=== PATIENT | male | born 1970 | race Caucasian/White ===

== ENCOUNTER 2016-08-05 19:13 | Emergency (ER) | payer BC ==
[2016-03-19 03:48] VITALS: BMI 31.6
[~2016-08-05 19:13] MED LIST: DILAUDID2 MG PO; DIOVAN HCT 160/1 TA1 PO; NORVASC5 MG PO; XANAX1 MG PO
== END 2016-08-05 22:58 | disposition home or self-care (01) ==
LOC: D.ER 19:13
DX: M25.531 Pain in right wrist (principal); M54.5 Low back pain; B19.20 Unspecified viral hepatitis C without hepatic coma; K74.60 Unspecified cirrhosis of liver; G62.9 Polyneuropathy, unspecified; F17.200 Nicotine dependence, unspecified, uncomplicated

== ENCOUNTER 2016-11-23 23:05 | Emergency (ER) | payer MEDICAID ==
[2016-03-19 03:48] VITALS: BMI 31.6
[2016-11-23 23:39] LABS: APPEARANCE CLEAR (CLEAR); BILIRUBIN NEGATIVE (NEGATIVE); COLOR YELLOW (YELLOW); GLUCOSE NEGATIVE (NEGATIVE); KETONE NEGATIVE (NEGATIVE); LEUKOCYTE ESTERASE NEGATIVE (NEGATIVE); NITRITE NEGATIVE (NEGATIVE); PROTEIN NEGATIVE (NEGATIVE); UROBILINOGEN NORMAL (NORMAL)
[2016-11-23 23:42] LABS: BASOPHILS 0.5 % (0-2); EOSINOPHILS 2.5 % (0-7); HEMATOCRIT 40.6 % (42.0-54.0); HEMOGLOBIN 13.7 g/dL (13.5-17.5); IMMATURE GRANULOCYTES 0.2 % (0-5); LYMPHOCYTES 31.2 % (15-50); MCH 31.6 pg (26.0-34.0); MCHC 33.7 g/dL (31.0-37.0); MCV 93.5 fL (80.0-100.0); MEAN PLATELET VOLUME 10.8 fL (7.4-10.4); MONOCYTES 6.3 % (2-11); NEUTROPHILS 59.3 % (40-80); RBC 4.34 10x6/uL (4.20-6.10); RDW 13.3 % (11.5-14.5); WBC 8.7 10x3/uL (4.8-10.8)
[2016-11-23 23:46] LABS: PLATELET COUNT 122 10x3/uL (130-400)
[2016-11-23 23:50] LABS: BACTERIA FEW /hpf (NONE SEEN); EPITHELIAL CELLS OCC /hpf (0-5); GRANULAR CAST RARE /lpf (NONE SEEN); HYALINE CAST RARE /lpf (NONE SEEN); MUCUS >1+ /lpf (NONE SEEN); WAXY CAST OCC /lpf (NONE SEEN); WHITE CELLS - URINE 0-5 /hpf (0-5)
[2016-11-23 23:51] LABS: AMORPHOUS SEDIMENT <1+ /lpf (NONE SEEN)
[2016-11-23 23:54] LABS: ALBUMIN 3.5 g/dL (3.4-5.0); ANION GAP 11.9 mmol/L (8-16); BILIRUBIN - TOTAL 0.13 mg/dL (0.2-1.3); CALCIUM 9.3 mg/dL (8.5-10.1); CARBON DIOXIDE 28.7 mmol/L (21.0-32.0); CREATININE - SERUM 1.3 mg/dL (0.6-1.3); POTASSIUM - SERUM 3.6 mmol/L (3.5-5.1); PROTEIN - SERUM 8.3 g/dL (6.4-8.2)
== END 2016-11-24 01:34 | disposition home or self-care (01) ==
LOC: D.ER 23:05
PROVIDERS: Emergency Medicine
DX: B19.20 Unspecified viral hepatitis C without hepatic coma (principal); K76.9 Liver disease, unspecified; R10.9 Unspecified abdominal pain; F17.200 Nicotine dependence, unspecified, uncomplicated

== ENCOUNTER → 2016-12-30 06:33 | Outpatient (CLI) | payer MEDICAID ==
[2016-03-19 03:48] VITALS: BMI 31.6
== END | disposition home or self-care (01) ==
LOC: D.RAD 06:33 → D.CT 10:00
DX: M54.5 Low back pain (principal)

== ENCOUNTER 2017-01-20 05:15 | Inpatient (IN) | payer MEDICAID ==
[2017-01-19 15:35] LABS: APPEARANCE CLEAR (CLEAR); BILIRUBIN NEGATIVE (NEGATIVE); COLOR YELLOW (YELLOW); GLUCOSE NEGATIVE (NEGATIVE); KETONE NEGATIVE (NEGATIVE); LEUKOCYTE ESTERASE NEGATIVE (NEGATIVE); NITRITE NEGATIVE (NEGATIVE); PROTEIN NEGATIVE (NEGATIVE); SPECIFIC GRAVITY 1.015 (1.005-1.020); UROBILINOGEN NORMAL (NORMAL)
[2017-01-19 15:37] LABS: BASOPHILS 0.6 % (0-2); EOSINOPHILS 2.7 % (0-7); HEMATOCRIT 37.4 % (42.0-54.0); HEMOGLOBIN 12.7 g/dL (13.5-17.5); IMMATURE GRANULOCYTES 0.3 % (0-5); MCH 31.5 pg (26.0-34.0); MCV 92.8 fL (80.0-100.0); MEAN PLATELET VOLUME 10.5 fL (7.4-10.4); MONOCYTES 7.2 % (2-11); NEUTROPHILS 56.2 % (40-80); PLATELET COUNT 142 10x3/uL (130-400); RBC 4.03 10x6/uL (4.20-6.10); RDW 13.5 % (11.5-14.5); WBC 7.9 10x3/uL (4.8-10.8)
[2017-01-19 15:43] LABS: APTT 29.3 SECONDS (22.8-39.4); INR 1.11 (0.85-1.17); PROTIME 14.2 SECONDS (11.6-15.0)
[2017-01-19 15:51] LABS: ALBUMIN 3.6 g/dL (3.4-5.0); ALKALINE PHOSPHATASE 67 U/L (46-116); ALT (SGPT) 47 U/L (10-68); BILIRUBIN - TOTAL 0.37 mg/dL (0.2-1.3); CALC OSMOLALITY 287 mosm/kg (275-300); CALCIUM 9.3 mg/dL (8.5-10.1); CARBON DIOXIDE 30.1 mmol/L (21.0-32.0); CHLORIDE - SERUM 105 mmol/L (98-107); POTASSIUM - SERUM 4.3 mmol/L (3.5-5.1); PROTEIN - SERUM 8.4 g/dL (6.4-8.2); SODIUM 143 mmol/L (136-145); UREA NITROGEN 20 mg/dL (7-18); eGFR NON AFRICAN AMERICAN 86 mL/min (90-120)
[2017-01-19 15:59] LABS: GLUCOSE 92 mg/dL (74-106)
[2017-01-20] VITALS (10 sets, daily range): BP systolic 108–134; BP diastolic 64–94; Ht 162.6 cm; Wt 79.5 kg
[~2017-01-20] VITALS: Ht 162.6 cm; Wt 79.5 kg
--- NOTE | ~2017-01-20 | OP ---
PATIENT NAME: ANNAMARIE CAMERON MEDICAL RECORD: [id number] :72 LOCATION:[id number] ADMISSION DATE:01/20/17 SURGEON: SRINATH HE MD OPERATION DATE: 01/20/17 PREOPERATIVE DIAGNOSES: 1. Right L3-L4 radiculopathy. 2. Adjacent segment disease. POSTOPERATIVE DIAGNOSES: 1. Right L3-L4 radiculopathy. 2. Adjacent segment disease. PROCEDURE PERFORMED: 1. Anterolateral retroperitoneal approach to the lumbar spine for L3-4 discectomy and decompression. 2. Application of intravertebral biomechanical device from lateral retroperitoneal approach. 3. Lateral retroperitoneal approach for interbody arthrodesis with endplate preparation with rasps and curettes. IMPLANTS: NuVasive 10 millimeter x 18 millimeter x 50 millimeter 10 degree lordotic Coroent XLIF interbody device packed with Osteocel allograft; this was a tab implant with 5.5 x 50 millimeter screw placed in the superior vertebral body. COMPLICATIONS: None apparent. SPECIMENS: None. ESTIMATED BLOOD LOSS: 50 milliliters. HISTORY: Annamarie Cameron is a pleasant 46-year-old male who presented to clinic with progressive severe right lower extremity pain in his proximal right leg. He had history of a L4-5 posterior fusion and fixation done approximately 17 years ago. Myelogram preoperatively was consistent with right L3-4 foraminal stenosis and a paracentral disc bulge at L3-4. I h ad an extensive discussion with Mr. Cameron regarding imaging findings, complications, risks, benefits, and options of operative intervention in the form of a lateral decompression and fixation versus continued conservative therapy. He opted to go for the operative intervention and the risks and benefits were discussed with him in detail. PROCEDURE IN DETAIL: Mr. Cameron with identified by the anesthesia team, transported to the operative theater with general endotracheal anesthesia commenced and all appropriate lines and tubes were placed. He was turned in the right lateral decubitus position with his left side up. Axillary roll was placed. Pressure points were padded. His left leg was flexed to allow for psoas relaxation. He was secured to the bed in a anatomically favorable fashion for x-ray. Using AP and lateral x-ray, a lateral incision was marked overlying the L3-4 disc space. After a timeout was performed and agreed to by those present. The patient did receive 1 gram of Ancef and 10 milligrams of IV dexamethasone prior to the start of the procedure. The incision was infiltrated with 1% Lidocaine with epinephrine and a 10 blade was used to make initial skin incision. A small amount of Bovie electrocautery was used to deepen the incision to the level of the subcutaneous fat. Blunt dissection was used down to the external abdominal musculature. This was opened with Metzenbaum scissors and care was taken to retract the retroperitoneal OPERATIVE REPORT [id number] CAMERON,DAVY ANKIT structures anteriorly and bluntly with finger. Blunt dissection continued down for palpation of the transverse process. Just anterior to the transverse process we located the psoas fascia. The initial dilator was introduced and with the direction of EMG nerve monitoring an approach to L3-4 disc space was ultimately achieved with appropriate position on AP and lateral fluoroscopy. A K-wire was tamped into place and ultimately the MaXcess retractor was placed and prior to placement of the chi the [place] 4 type dissector was used and appeared the nerve was in the region of the posterior blade. Direct probe stimulation suggested strongly that this was indeed a nerve. As such, the retractor was taken out and new approach in slightly anterior fashion was undertaken and under direct of EMG nerve stimulation. It was appropriately positioned on x-ray and the K-wire was ultimately placed. The retractor was reintroduced and the drill simulation was much more favorable. It was still producing a nerve root response at pretty low EMG stimulation posteriorly so it was elected to not place the chi anchor. The Halo retractor was placed to delineate the anterior border. The residual psoas muscle around the disc space was dissected free with the dissector. The 10 blade was used to make a score a cut in the disc space and pituitary rongeurs were used to perform initial discectomy. A combination of Johnson elevators, endplate rasps, and box cutters and curettes were used to perform discectomy and endplate preparation. Ultimately a 10 millimeter trial was placed and found to be appropriately positioned on AP and lateral fluoroscopy. As such, the 10 x 18 x 50 millimeter 10 degree cage with the inferior tabbed screw hole portion removed was packed with Osteocel bone graft substance and inserted to the appropriate position under x-ray. Please note that during the insertion and removal of the instruments during the discectomy and the trial, care was taken to bluntly reflect with the yellow retractor and my finger the retroperitoneal fat space. The bony awl was then used to develop a screw track for the superior tab and a 5.5 x 50 millimeter screw was then placed and deepened until the locking mechanism was engaged. The screw was in appropriate position by x-ray. Copious amount of irrigation was used down the operative tract totally approximately one liter of antibiotic infused irrigation total. A small amount of vancomycin powder was sprinkled down through the psoas track. The retractor blades were closed down taking care not to pinch any tissue surrounding the blades then removed and final x-rays were taken showing the implants in the appropriate position. A small amount of Surgiflo hemostatic matrix control a very small amount of hemorrhage in the psoas muscle. There significant hemorrhage prior to closure. The transversalis fascia was reapproximated with interrupted 3-0 Vicryl sutures. The subdermal region was reapproximated with inverted interrupted 3-0 sutures and the skin was closed with running 4-0 subcuticular Monocryl. The area was cleaned and dressed with a sterile wet and dry dressing and a Dermabond skin glue and Prineo dressing was placed. The patient was returned to the anesthesia team for reversal and extubation. The patient tolerated the procedure well, without any apparent complications. I updated his family immediately postoperative regarding the course of the surgery and their questions were answered. All sponge and needle counts were correct times two at the end of the case. OPERATIVE REPORT [id number] ANNAMARIE CAMERON JUSTIN T MD CC: [id number] DICTATION DATE: 01/20/17 1200 NUCLEAR SPECTROSCOPIST: FRACISCO 01/21/17 0914 [facility] [place] [id number] [place] [id number]
[~2017-01-20 05:15] MED LIST changes: +ALDACTONE50 MG PO; +DIOVAN HCT 320/1 TA2 PO; +ENULOSE10 G/15 ML PO; +GABAPENTIN100 MG PO; +LEXAPRO20 MG PO; +NEURONTIN 300300 MG PO; +OMEPRAZOLE20 M1 PO; +OXYCODONE HCL10 MG PO; +PREDNISONE10 MG PO; +ROBAXIN-750750 MG PO; +XANAX0.5 MG PO; +XIFAXAN550 MG PO
--- NOTE | 2017-01-20 11:38 | NUR ---
PT AOX4 RESP EVEN AND NONLABORED PT RESPONDS WITH APPROPRIATE ANSWERS AT THIS TIME V/S WNL PT IN ROOM AT BEDSIDE. SRX2 HOB30 DEGREES BED AT LOWEST SETTING WILL CONTINUE TO MONITOR
--- NOTE | 2017-01-21 03:59 | NUR ---
PATIENT RESTING IN BED AND DENIES NEEDS AT THIS TIME. ADMINSITERED MEDS PER ORDERS. BED IN LOWEST POSITION AND CALL LIGHT WITHIN REACH. ENCOURAGED THE PATIENT TO CALL IF HE HAS NEEDS.
[2017-01-21] MEDS ORDERED: ROBAXIN-750750 MG PO (06:56)
--- NOTE | 2017-01-21 07:10 | NUR ---
PATIENT RECEIVED SITTING UP ON SIDE OF BED ALERT. NO SIGNS OF DISTRESS NOTED. SIDE RAILS UP X2. DENIES NEEDS. BED IN LOW POSITION. CALL LIGHT IN REACH.
--- NOTE | 2017-01-21 09:05 | NUR ---
IV TO RIGHT HAND D/C WITH CATH TIP INTACT. SITE COVERED WITH GAUZE AND BANDAID.
--- NOTE | 2017-01-21 10:20 | NUR ---
D/C TEACHING PROVIDED TO PATIENT AND FAMILY. STATES UNDERSTANDING. QUESTIONS ANSWERED. D/C HOME WITH FAMILY. TRANSFERRE DOWNSTAIRS VIA WHEELCHAIR WITH VOLUNTEER.
== END 2017-01-21 10:21 | disposition home or self-care (01) | DRG 460 ==
LOC: D.MS 05:15 → D.SDCHOLD 05:15 → D.MS 10:41
PROVIDERS: ADMIT Neurological Surgery
PROC: 0SB20ZZ Excision of Lumbar Vertebral Disc, Open Approach (ICD-10-PCS; 2017-01-20)
PROC: 0SG00A0 Fusion of Lumbar Vertebral Joint with Interbody Fusion Device, Anterior Approach, Anterior Column, Open Approach (ICD-10-PCS; principal; 2017-01-20 07:30)
DX: M54.16 Radiculopathy, lumbar region (principal)

== ENCOUNTER 2017-01-28 22:38 | Emergency (ER) | payer MEDICAID ==
[2017-01-20 11:15] VITALS: BMI 30.1
== END 2017-01-29 01:20 | disposition home or self-care (01) ==
LOC: D.ER 22:38
DX: G89.18 Other acute postprocedural pain (principal); F17.200 Nicotine dependence, unspecified, uncomplicated

== ENCOUNTER → 2017-02-26 08:09 | Outpatient (CLI) | payer MEDICAID ==
[2017-01-20 11:15] VITALS: BMI 30.1
== END | disposition home or self-care (01) ==
LOC: D.RAD 08:00
DX: Z48.811 Encounter for surgical aftercare following surgery on the nervous system (principal)

== ENCOUNTER 2017-03-27 20:53 | Emergency (ER) | payer MEDICAID | END 2017-03-27 23:35 | disposition home or self-care (01) | LOC: D.ER 20:53 | DX: R10.13 Epigastric pain (principal); K76.9 Liver disease, unspecified; F17.200 Nicotine dependence, unspecified, uncomplicated ==

== ENCOUNTER 2017-04-13 11:29 | Emergency (ER) | payer MEDICAID ==
[2017-01-20 11:15] VITALS: BMI 30.1
[~2017-04-13 11:29] MED LIST changes: -NEURONTIN 300300 MG PO; +NEURONTIN600 MG PO
[2017-04-13 12:20] LABS: BASOPHILS 0.3 % (0-2); EOSINOPHILS 4.3 % (0-7); HEMATOCRIT 41.6 % (42.0-54.0); HEMOGLOBIN 14.3 g/dL (13.5-17.5); IMMATURE GRANULOCYTES 0.1 % (0-5); LYMPHOCYTES 27.5 % (15-50); MCH 30.9 pg (26.0-34.0); MCHC 34.4 g/dL (31.0-37.0); MCV 89.8 fL (80.0-100.0); MEAN PLATELET VOLUME 10.2 fL (7.4-10.4); MONOCYTES 9.3 % (2-11); NEUTROPHILS 58.5 % (40-80); PLATELET COUNT 157 10x3/uL (130-400); RBC 4.63 10x6/uL (4.20-6.10); RDW 13.5 % (11.5-14.5); WBC 10.6 10x3/uL (4.8-10.8)
[2017-04-13 12:27] LABS: APPEARANCE HAZY (CLEAR); BILIRUBIN NEGATIVE (NEGATIVE); COLOR DK YELLOW (YELLOW); GLUCOSE NEGATIVE (NEGATIVE); KETONE NEGATIVE (NEGATIVE); NITRITE NEGATIVE (NEGATIVE); PROTEIN NEGATIVE (NEGATIVE); SPECIFIC GRAVITY 1.015 (1.005-1.020); UROBILINOGEN NORMAL (NORMAL)
[2017-04-13 12:28] LABS: APTT 29.9 SECONDS (22.8-39.4); INR 1.07 (0.85-1.17); PROTIME 13.8 SECONDS (11.6-15.0)
[2017-04-13 12:33] LABS: ALBUMIN 3.5 g/dL (3.4-5.0); ALKALINE PHOSPHATASE 102 U/L (46-116); ALT (SGPT) 32 U/L (10-68); AMYLASE - SERUM 74 U/L (25-115); BILIRUBIN - TOTAL 0.43 mg/dL (0.2-1.3); CALC OSMOLALITY 269 mosm/kg (275-300); CALCIUM 9.3 mg/dL (8.5-10.1); CARBON DIOXIDE 29.6 mmol/L (21.0-32.0); CHLORIDE - SERUM 100 mmol/L (98-107); CREATININE - SERUM 0.9 mg/dL (0.6-1.3); GLUCOSE 107 mg/dL (74-106); LIPASE 159 U/L (73-393); POTASSIUM - SERUM 3.2 mmol/L (3.5-5.1); PROTEIN - SERUM 8.4 g/dL (6.4-8.2); SODIUM 135 mmol/L (136-145); UREA NITROGEN 12 mg/dL (7-18); eGFR NON AFRICAN AMERICAN > 90 mL/min (90-120)
[2017-04-13 12:35] LABS: UDS - AMPHET POSITIVE QUAL (NEGATIVE); UDS - BARB NEGATIVE QUAL (NEGATIVE); UDS - BENZO POSITIVE QUAL (NEGATIVE); UDS - COCAINE NEGATIVE QUAL (NEGATIVE); UDS - OPIATE POSITIVE QUAL (NEGATIVE); UDS - PCP NEGATIVE QUAL (NEGATIVE); UDS - THC NEGATIVE QUAL (NEGATIVE)
[2017-06-15] MEDS ORDERED: PERCOCET 10/3251 TA1 PO (09:17)
[2017-06-15] MEDS ORDERED: MOVANTIK25 MG PO (09:18)
== END 2017-04-13 16:15 | disposition home or self-care (01) ==
LOC: D.ER 11:29
PROVIDERS: Family Medicine
DX: R10.9 Unspecified abdominal pain (principal); K59.00 Constipation, unspecified; F15.10 Other stimulant abuse, uncomplicated; F17.200 Nicotine dependence, unspecified, uncomplicated

== ENCOUNTER 2017-06-17 05:29 | Day surgery (SDC) | payer MEDICAID ==
[2017-06-15 10:31] LABS: HEMOGLOBIN 13.6 g/dL (13.5-17.5); MCH 31.1 pg (26.0-34.0); MCV 91.3 fL (80.0-100.0); RBC 4.38 10x6/uL (4.20-6.10); RDW 13.9 % (11.5-14.5); WBC 8.5 10x3/uL (4.8-10.8)
[2017-06-15 10:53] LABS: ALBUMIN 3.5 g/dL (3.4-5.0); ALKALINE PHOSPHATASE 78 U/L (46-116); ALT (SGPT) 38 U/L (10-68); APTT 32.5 SECONDS (22.8-39.4); BILIRUBIN - TOTAL 0.23 mg/dL (0.2-1.3); CALC OSMOLALITY 271 mosm/kg (275-300); CALCIUM 9.1 mg/dL (8.5-10.1); CARBON DIOXIDE 29.2 mmol/L (21.0-32.0); CHLORIDE - SERUM 101 mmol/L (98-107); CREATININE - SERUM 1.1 mg/dL (0.6-1.3); GLUCOSE 98 mg/dL (74-106); INR 1.1 (0.85-1.17); PROTEIN - SERUM 8.2 g/dL (6.4-8.2); PROTIME 13.8 SECONDS (11.6-15.0); SODIUM 136 mmol/L (136-145); UREA NITROGEN 13 mg/dL (7-18); eGFR NON AFRICAN AMERICAN 76 mL/min (90-120)
[~2017-06-17] VITALS: Ht 162.6 cm; Wt 79.4 kg
[~2017-06-17 05:29] MED LIST changes: +MOVANTIK25 MG PO; +PERCOCET 10/3251 TA1 PO
[2017-06-17 08:24] VITALS: BP 133/85; Ht 162.6 cm; Wt 79.4 kg
--- NOTE | 2017-06-17 11:31 | NUR ---
1115 IV DC WITH CATHER TIP INTACT
--- NOTE | 2017-06-17 14:09 | OP ---
PATIENT NAME: ANNAMARIE CAMERON MEDICAL RECORD: [id number] :72 LOCATION:[facility] ADMISSION DATE: SURGEON: DAMIAN SANDOVAL MD DATE OF OPERATION: 06/17/2017 PREOPERATIVE DIAGNOSIS: Ganglion cyst of the right wrist dorsum -- complex. POSTOPERATIVE DIAGNOSIS: Ganglion cyst of the right wrist dorsum -- complex. PROCEDURE: Removal of ganglion cyst of the right wrist. SURGEON: Damian Sandoval MD ANESTHESIA: General. INTRAOPERATIVE COMPLICATIONS: None. SUMMARY OF PATHOLOGIC FINDINGS: The patient had a multilobulated ganglion cyst emanating from the dorsal capsule of the right wrist that required excision with capsular repair. OPERATIVE SUMMARY IN DETAIL: After obtaining the appropriate preoperative orthopedic surgery consent as well as anesthetic consultation, evaluation, and clearance, the patient was brought to the operating room and placed on the operating table in supine position. After adequate general laryngeal mask airway was administered, tourniquet was placed about the proximal aspect of the right upper extremity. The right upper extremity was then prepped and draped in routine sterile fashion. The arm was elevated, exsanguinated and tourniquet inflated to 350 mmHg. An incision was made directly over the cyst that was dissected around proximally, distally, ulnarly, and radially. It was carried down to the level of capsule. Multi lobes were dissected out in and around the extensor tendons down to the capsule itself. The capsular rent was quite large, approximately 0.5 x 1 cm long. Ganglion cyst was taken and sent for permanent section. Wound was copiously irrigated. Wrist capsule was reapproximated with 2-0 Vicryl. Skin was reapproximated with 2-0 Vicryl and 4-0 Prolene. The area was locally infiltrated with 0.25% Marcaine plain. Sterile dressings were applied. Tourniquet was deflated and a volar splint was applied to aid in healing of the capsular reconstruction. Having completed this, the patient was awakened and taken to recovery room in stable condition. All final needle, sponge, and instrument counts were correct. TRANSINT:[id number] Voice Confirmation ID: [id number] DOCUMENT ID: [id number] DAMIAN SANDOVAL MD at 1409 CC: [id number] DICTATION DATE: 06/17/17 0939 TECHNOLOGY SALES CONSULTANT: 06/17/17 1051 [facility] [place] 06/17/17 [facility] [address] [place] [address]
== END 2017-06-17 11:30 | disposition home or self-care (01) ==
LOC: D.OPS 05:29 → D.PAN 10:15 → D.OPS 10:15
PROVIDERS: Anesthesiology
DX: M67.431 Ganglion, right wrist (principal); F17.200 Nicotine dependence, unspecified, uncomplicated; B19.20 Unspecified viral hepatitis C without hepatic coma; Z01.812 Encounter for preprocedural laboratory examination

== ENCOUNTER 2017-10-26 17:25 | Emergency (ER) | payer MEDICAID ==
[2017-06-17 08:24] VITALS: BMI 30.1
[2017-10-26 20:39] LABS: BASOPHILS 0.4 % (0-2); EOSINOPHILS 1.8 % (0-7); HEMATOCRIT 37.5 % (42.0-54.0); HEMOGLOBIN 12.8 g/dL (13.5-17.5); IMMATURE GRANULOCYTES 0.2 % (0-5); LYMPHOCYTES 22.7 % (15-50); MCH 31.4 pg (26.0-34.0); MCHC 34.1 g/dL (31.0-37.0); MCV 91.9 fL (80.0-100.0); MEAN PLATELET VOLUME 10.5 fL (7.4-10.4); MONOCYTES 7.7 % (2-11); NEUTROPHILS 67.2 % (40-80); PLATELET COUNT 160 10x3/uL (130-400); RBC 4.08 10x6/uL (4.20-6.10); RDW 13.4 % (11.5-14.5)
[2017-10-26 20:54] LABS: ALBUMIN 3.7 g/dL (3.4-5.0); ALKALINE PHOSPHATASE 75 U/L (46-116); ALT (SGPT) 29 U/L (10-68); AMYLASE - SERUM 89 U/L (25-115); CALC OSMOLALITY 268 mosm/kg (275-300); CALCIUM 9.4 mg/dL (8.5-10.1); CARBON DIOXIDE 28.9 mmol/L (21.0-32.0); CHLORIDE - SERUM 101 mmol/L (98-107); CREATININE - SERUM 1.1 mg/dL (0.6-1.3); GLUCOSE 98 mg/dL (74-106); LIPASE 177 U/L (73-393); POTASSIUM - SERUM 5.1 mmol/L (3.5-5.1); PROTEIN - SERUM 8.4 g/dL (6.4-8.2); SODIUM 133 mmol/L (136-145); UREA NITROGEN 21 mg/dL (7-18); eGFR NON AFRICAN AMERICAN 76 mL/min (90-120)
[2017-10-26 21:30] LABS: APPEARANCE CLEAR (CLEAR); BILIRUBIN NEGATIVE (NEGATIVE); COLOR YELLOW (YELLOW); GLUCOSE NEGATIVE (NEGATIVE); KETONE NEGATIVE (NEGATIVE); NITRITE NEGATIVE (NEGATIVE); PROTEIN NEGATIVE (NEGATIVE); UROBILINOGEN NORMAL (NORMAL)
[2017-10-26 21:43] LABS: UDS - AMPHET NEGATIVE QUAL (NEGATIVE); UDS - BARB NEGATIVE QUAL (NEGATIVE); UDS - BENZO NEGATIVE QUAL (NEGATIVE); UDS - COCAINE NEGATIVE QUAL (NEGATIVE); UDS - OPIATE POSITIVE QUAL (NEGATIVE); UDS - PCP NEGATIVE QUAL (NEGATIVE); UDS - THC NEGATIVE QUAL (NEGATIVE)
== END 2017-10-26 22:35 | disposition home or self-care (01) ==
LOC: D.ER 17:25
PROVIDERS: Family Medicine
DX: R10.9 Unspecified abdominal pain (principal); K72.90 Hepatic failure, unspecified without coma